=== PATIENT | male | born 1945 | race Caucasian/White ===

== ENCOUNTER 2016-06-13 08:10 | Day surgery (SDC) | payer MEDICARE, BC ==
[~2016-06-13] VITALS: Ht 188 cm; Wt 115.8 kg
[2016-06-13] VITALS (22 sets, daily range): BP systolic 126–199; BP diastolic 70–95; PULSE 56–86; RESP 12–20; TEMP 97.1–98.4; O2SAT 92–99; Ht 188 cm; Wt 115.8 kg
[~2016-06-13 08:10] MED LIST: ACET-2930 PO; ASPI-557 PO; ASPI1CPM PO; ATOR40TA64 PO; CETI10CA19 PO; FENTANYL 100mcg/2ml INJECTION ONE; FLUT9.9S NAS; ICAPS PO; INSU100V SQ; INSU100V8 SQ; LIDOCAINE 1% (10mg/ml) 2ml SDV INJ ONE; LR 1,000 ML IV SCH; MAGN400T6 PO; METO25TA6 PO; MIDAZOLAM 5mg/5ml INJECTION ONE; NITR0.4T39 PO; OLME20TA15 PO; PROP15DR BOTH EYES; SALINE FLUSH 10ml SYRINGE ONE; TAMS0.4C47 PO
--- OUTSIDE RECORDS SUMMARY | 2016-06-13 08:37 | XMS REPORT | Referral Summary ---
Author Author [facility] Organization [facility] Address Unknown Phone Unavailable Care Team Providers Care Business Director Name Role Phone Patricia Conner Primary Care Physician [phone] Encounter VC Date(s): 03/24/15 - 03/24/15 [facility] 1945 [facility] [place] [address] Discharge Disposition: 01-Home or Self Care Attending Physician: Navarro Bolaños MD Admitting Physician: Navarro Bolaños MD Vital Signs No data available for this section Problem List Condition Effective Dates Status Health Status Informant Acute Active pain(Confirmed) Alteration in bowel 09/18/14 Active elimination(Confirme d)1 At risk for activity Active intolerance(Confirme d)2 At risk for Active injury(Confirmed)3 At risk of pressure Active sore(Confirmed) Benign essential Active hypertension (disorder)(Confirmed ) Benign prostatic Active hypertrophy(Confirme d) Cardiac Active disorder(Confirmed)4 CVA (cerebral Active patient infarction)(Confirme d) Communication Active impairment(Confirmed )5 DM (diabetes Active patient mellitus)(Confirmed) Ketoacidosis in Active diabetes mellitus (disorder)(Confirmed ) Hyperlipidemia(Confi Active rmed) HYPERTENSION(Confirm Resolved ed) Impaired 09/18/14 Active mobility(Confirmed)6 Impaired skin Active integrity(Confirmed) 7 Self -care Active deficit(Confirmed)8 Tissue perfusion Active alteration(Confirmed )9 1Problem added by Discern Expert 2Problem added automatically by system based on initiation of At Risk for Activity Intolerance Plan of Care 3Problem added automatically by system based on initiation of Risk for Injury Plan of Care 4Problem added automatically by system based on initiation of Cardiac Output/ Ineffective Cardiac Perfusion Plan of Care 5Problem added automatically by system based on initiation of Impaired Communication Plan of Care 6Problem added by Discern Expert 7Problem added automatically by system based on initiation of Impaired Skin Integrity Plan of Care 8Problem added automatically by system based on initiation of Self Care Deficit Plan of Care 9Problem added automatically by system based on initiation of Tissue Perfusion Cerebral Plan of Care Allergies, Adverse Reactions, Alerts Substance Reaction Severity Status clarithromycin Unknown Active smallpox vaccine Active Medications Aggrenox 1 caps, Oral, BID, 0 Refill(s) Start Date: 03/07/15 Status: Ordered atorvastatin 40 mg, Oral, Bedtime (once a day), 0 Refill(s) Start Date: 03/07/15 Status: Ordered Benicar 20 mg, Oral, Daily, 0 Refill(s) Start Date: 03/07/15 Status: Ordered Flomax 0.4 mg, Oral, Daily, 0 Refill(s) Start Date: 03/07/15 Status: Ordered HumaLOG See Instructions, 18 - 22 units three times a day with meals, depending on meal , 0 Refill(s) Start Date: 03/07/15 Status: Ordered Lantus 30 units, SubCutaneous, Bedtime (once a day), 0 Refill(s) Start Date: 03/07/15 Status: Ordered Lantus 35 units, SubCutaneous, qAM, 0 Refill(s) Start Date: 03/07/15 Status: Ordered metoprolol tartrate 25 mg oral tablet 0.5 mg, Oral, BID, # 30 tabs, 0 Refill(s) Start Date: 03/08/15 Status: Ordered multivitamin Oral, Daily, 0 Refill(s) Start Date: 03/07/15 Status: Ordered niCARdipine 30 mg, Oral, TID, 0 Refill(s) Start Date: 03/07/15 Status: Ordered nitroglycerin 0.4 mg sublingual tablet 0.4 mg 1 tabs, SubLingual, q5min, as needed for chest pain, # 100 tabs, 0 Refill (s) Start Date: 03/08/15 Status: Ordered OTC allergy med OTC allergy med, 1 oral daily, 0 Refill(s) Start Date: 03/07/15 Status: Ordered OTC nasal spray OTC nasal spray, 1 spray nasally daily, 0 Refill(s) Start Date: 03/07/15 Status: Ordered Results No data available for this section Immunizations Vaccine Date Refusal Reason influenza virus vaccine, live 05/03/13 influenza virus vaccine, live 02/23/11 influenza virus vaccine, live 05/24/10 pneumococcal 23-polyvalent vaccine 05/24/10 tetanus-diphth toxoids (Td) adult/adol 11/27/96 Procedures Procedure Date Related Diagnosis Body Site History of cataract extraction Vitrectomy1 1bilateral Social History Social History Type Response Smoking Status Never smoker Assessment and Plan No data available for this section
--- OUTSIDE RECORDS SUMMARY | 2016-06-13 08:37 | XMS REPORT | Continuity of Care Document ---
Author Author [facility] Organization [facility] Address Unknown Phone Unavailable Allergies Active Description Code Type Severity Reaction Onset Reported/Identified Relationship to Patient Clinical Status Yes clarithromycin NKMA N/A Unknown 08/04/2013 Yes smallpox vaccine NKMA N/A N/A 08/04/2013 Yes clarithromycin NKMA N/A Unknown 08/04/2013 Yes smallpox vaccine NKMA N/A N/A 08/04/2013 Yes clarithromycin clarithromycin Drug Allergy Unknown DECREASED APPETITE 10/18/2014 Medications Problems Date Dx Coded Attending Type Code Diagnosis Diagnosed By 09/13/2014 Admitting 780.79 09/20/2014 Enma Spivey Final 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, type II or unspecified ty 09/20/2014 Enma Spivey Final 272.4 OTHER AND UNSPECIFIED HYPERLIPIDEMIA 09/20/2014 Enma Spivey Final 362.01 BACKGROUND DIABETIC RETINOPATHY 09/20/2014 Enma Spivey Final 401.9 UNSPECIFIED ESSENTIAL HYPERTENSION 09/20/2014 Enma Spivey Admitting 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, UNSPECIFIED, WITH CEREBRAL INFARCTION 09/20/2014 Enma Spivey Final 438.11 APHASIA LATE EFFECT OF CEREBROVASCULAR DISEASE 09/20/2014 Enma Spivey Final 438.20 HEMIPLEGIA AFFECTING UNSPECIFIED SIDE LATE EFFECT OF CEREBROVASCULAR DIS 09/20/2014 Enma Spivey Final 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 09/20/2014 Enma Spivey Final 473.9 UNSPECIFIED SINUSITIS (CHRONIC) 09/20/2014 Enma Spivey Final 486 PNEUMONIA, ORGANISM UNSPECIFIED 09/20/2014 Enma Spivey Final 787.20 Dysphagia, unspecified 09/20/2014 Enma Spivey Final V12.59 OTHER PERSONAL HISTORY OF DISEASES OF CIRCULATORY SYSTEM 09/20/2014 Enma Spivey Final V15.82 Personal History of Tobacco Use 09/23/2014 Admitting 780.97 Altered mental status 10/12/2014 Enma Spivey Final 368.8 OTHER SPECIFIED VISUAL DISTURBANCES 10/14/2014 Enma Spivey Final V57.89 CARE INVOLVING OTHER SPECIFIED REHABILITATION PROCEDURE 11/10/2014 Final 250.52 Diabetes mellitus with ophthalmic manifestations, type II or unspecified ty 11/10/2014 Final 272.4 OTHER AND UNSPECIFIED HYPERLIPIDEMIA 11/10/2014 Final 290.40 Vascular dementia, uncomplicated 11/10/2014 Final 362.01 BACKGROUND DIABETIC RETINOPATHY 11/10/2014 Final 401.1 BENIGN ESSENTIAL HYPERTENSION 11/10/2014 Final 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, UNSPECIFIED, WITH CEREBRAL INFARCTION 11/10/2014 Final 437.0 CEREBRAL ATHEROSCLEROSIS 11/10/2014 Final 473.9 UNSPECIFIED SINUSITIS (CHRONIC) 11/10/2014 Final 600.00 Hypertrophy (benign) of prostate without urinary obstruction and other lowe 11/10/2014 Final 784.51 Dysarthria 11/10/2014 Final V15.82 Personal History of Tobacco Use 03/16/2015 Dalton MARTINEZ, Thomas Final E11.9 Type 2 diabetes mellitus without complications 03/16/2015 Dalton MARTINEZ, Thomas Final E78.5 Hyperlipidemia, unspecified 03/16/2015 Dalton MARTINEZ, Thomas Final I10 Essential (primary) hypertension 03/16/2015 Dalton MARTINEZ, Thomas Final 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75 VITREOUS SUBSTITUT INJEC Chaitanya MARTINEZ, Braeden P 12/08/2014 14.9 OTHER POST SEGMENT OPS Chaitanya MARTINEZ, Braeden P 12/08/2014 Results Test Result Range GLUCOSE (POC) - 10/18/14 13:01 GLUCOSE (POC) 171 mg/dL 70-99 HEMOGLOBIN - 10/18/14 13:02 MEAN CELL VOLUME 94.3 fl 80.0-100.0 HEMOGLOBIN 14.7 gm/dL 14.0-18.0 METABOLIC PANEL, BASIC - 10/18/14 13:03 POTASSIUM 4.2 mmol/L 3.5-5.3 EST GFR (MDRD) > 60 mL/min > 59 ANION GAP 10 mmol/L 5-15 EST CrCl (CG) > 60 mL/min > 59 GLUCOSE 199 mg/dL 70-99 CALCIUM 9.0 mg/dL 8.5-10.1 BLOOD UREA NITROGEN 20 mg/dL 7-20 CREATININE 1.0 mg/dL 0.7-1.3 SODIUM 141 mmol/L 135-148 CHLORIDE 108 mmol/L 98-110 CARBON DIOXIDE 23 mmol/L 21-32 HEMOGLOBIN - 12/08/14 13:36 MEAN CELL VOLUME 94.2 fl 80.0-100.0 HEMOGLOBIN 15.8 gm/dL 14.0-18.0 Microbiology GLUCOSE (POC) - 12/08/14 13:39 GLUCOSE (POC) 69 mg/dL 70-99 Microbiology GLUCOSE (POC) - 12/08/14 14:17 GLUCOSE (POC) 91 mg/dL 70-99 Microbiology GLUCOSE (POC) - 12/08/14 15:08 GLUCOSE (POC) 85 mg/dL 70-99 Microbiology Encounters ACCT No. Visit Date/Time Discharge Status Pt. Type Provider Facility Loc./Unit Complaint [id number] 12/08/2014 12:56:00 2014 17:02:00 DIS Outpatient Chaitanya MARTINEZ, Braeden [facility] W.OPRA [id number] 10/18/2014 12:16:00 2014 16:13:00 DIS Outpatient Chaitanya MARTINEZ, Braeden [facility] W.OPRA [id number] 08/04/2014 14:41:00 2014 17:38:00 DIS Emergency Erin MARTINEZ, [facility] W.EDW [id number] 11/28/2013 11:05:00 2013 12:45:00 [id number] 02/07/2013 17:41:00 2012 18:55:00 DIS Emergency Gaston DO, [facility] THAI
--- OUTSIDE RECORDS SUMMARY | 2016-06-13 08:37 | XMS REPORT | Referral Summary ---
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 Discharge Disposition: 01-Home or Self Care Attending [...] (disorder)(Confirmed ) Benign prostatic Active hypertrophy(Confirme d) Communication Active impairment(Confirmed )4 Ketoacidosis in Active diabetes mellitus (disorder)(Confirmed ) Hyperlipidemia(Confi Active rmed) HYPERTENSION(Confirm Resolved ed) Impaired 09/18/14 Active mobility(Confirmed)5 Impaired skin Active integrity(Confirmed) 6 Self -care Active deficit(Confirmed)7 Tissue perfusion Active alteration(Confirmed )8 1Problem added by Discern Expert 2Problem added automatically by system based on initiation of At Risk for Activity Intolerance Plan of Care 3Problem added automatically by system based on initiation of Risk for Injury Plan of Care 4Problem added automatically by system based on initiation of Impaired Communication Plan of Care 5Problem added by Discern Expert 6Problem added automatically by system based on initiation of Impaired Skin Integrity Plan of Care 7Problem added automatically by system based on initiation of Self Care Deficit Plan of Care 8Problem added automatically by system based on initiation of Tissue Perfusion Cerebral Plan of Care Allergies, Adverse Reactions, Alerts Substance Reaction Severity Status clarithromycin Unknown Active smallpox vaccine Active Medications acetaminophen 325 mg oral tablet 650 mg 2 tabs, Oral, q4hr, Other (See Comment), 0 Refill(s) Start Date: 09/17/14 Status: Ordered Aggrenox 25 mg-200 mg oral capsule, extended release 1 caps, Oral, BID, # 180 caps, 3 Refill(s), Pharmacy: [facility] #[id number] Start Date: 10/18/14 Status: Ordered amoxicillin 875 mg oral tablet 875 mg 1 tabs, Oral, BID, for sinusitis, # 28 tabs, 0 Refill(s), Pharmacy: [facility] #[id number], 1 tabs Oral BID,x14 days,Instr:for sinusitis Start Date: 02/07/15 Stop Date: 02/21/15 Status: Ordered atorvastatin 40 mg oral tablet 40 mg 1 tabs, Oral, Bedtime (once a day), # 90 tabs, 3 Refill(s), Pharmacy: [facility] #[id number], 1 tabs Oral Bedtime (once a day) Start Date: 10/18/14 Status: Ordered Breeze 2 test stips Breeze 2 test stips, See Instructions, test 4 times 1 day 3 TIMES PER WEEK DX 250.00 Length of need 99 yrs QTY: 150 11 REFILLS, # 150 Each, 11 Refill(s), Pharmacy: [facility] #[id number], test 4 times 1 day 3 TIMES PER WEEK ; DX 250.00 Length of... Start Date: 11/11/14 Status: Ordered Colace 100 mg oral capsule 100 mg 1 caps, Oral, BID, 0 Refill(s) Start Date: 09/17/14 Status: Ordered Flomax mg, Oral, Daily, 0 Refill(s) Start Date: 02/07/15 Status: Ordered insulin lispro 100 units/mL subcutaneous solution 15 units, SubCutaneous, TIDWM, # 15 mL, 11 Refill(s), Pharmacy: [facility] #[id number], 15 units SubCutaneous TIDWM Start Date: 10/18/14 Status: Ordered Lantus 100 units/mL subcutaneous solution 40 units, SubCutaneous, qAM, # 10 mL, 11 Refill(s), Pharmacy: [facility] # [id number], 40 units SubCutaneous qAM Start Date: 10/18/14 Status: Ordered Lantus 100 units/mL subcutaneous solution 35 units, SubCutaneous, Bedtime (once a day), # 10 mL, 11 Refill(s), Pharmacy: [facility] #[id number], 35 units SubCutaneous Bedtime (once a day) Start Date: 10/18/14 Status: Ordered Misc Prescription Misc Prescription, See Instructions, IntraDermal QID, # 1 boxes, 11 Refill(s), Pharmacy: [facility] #[id number], IntraDermal QID Start Date: 10/18/14 Status: Ordered Miscellaneous DME DME Item ACCU CHECK SAFETY PRO PLUS SINGLE USE LANCETS, See Instructions, # 1 Each, 1 Refill(s), Pharmacy: [facility] #[id number], ACCU CHECK SAFETY PRO PLUS SINGLE USE LANCETS, Supply Start Date: 10/29/14 Status: Ordered Miscellaneous DME DME Item ACCU-CHEK SMARTVIEW TEST STRIP. CHECK BLOOD SUGARS TEST 5 X A DAY UNTILL BS ARE UNDER CONTROL DX 250.00 DEBBI 99 ONE BOX OF 150 REFILL X 11, See Instructions, # 150 Each, 11 Refill(s), Pharmacy: [facility] #[id number], ACCU-CHEK SMARTV... Start Date: 11/11/14 Status: Ordered niCARdipine 30 mg oral capsule 30 mg 1 caps, Oral, TID, # 270 caps, 3 Refill(s), Pharmacy: [facility] # [id number], 1 caps Oral TID Start Date: 10/18/14 Status: Ordered olmesartan 20 mg oral tablet 20 mg 1 tabs, Oral, Daily, # 90 tabs, 3 Refill(s), Pharmacy: [facility] # [id number], 1 tabs Oral Daily Start Date: 10/18/14 Status: Ordered topiramate 25 mg oral tablet 50 mg 2 tabs, Oral, BID, # 360 tabs, 3 Refill(s), Pharmacy: [facility] # [id number], 2 tabs Oral BID Start Date: 10/18/14 Status: Ordered Tums 500 mg oral tablet, chewable 500 mg 1 tabs, Oral, q4hr, GERD/Heartburn, 0 Refill(s) Start Date: 09/17/14 Status: Ordered Results No data available for this section Immunizations Vaccine Date Refusal Reason influenza virus vaccine, live 05/03/13 influenza virus vaccine, live 02/23/11 influenza virus vaccine, live 05/24/10 pneumococcal 23-polyvalent vaccine 05/24/10 tetanus-diphth toxoids (Td) adult/adol 11/27/96 Procedures Procedure Date Related Diagnosis Body Site Vitrectomy1 1bilateral Social History Social History Type Response Smoking Status Never smoker Assessment and Plan Extracted from: Title: Consult Note Author: Navarro Bolaños MD Date: 02/07/15 Assessment/Plan 1.Polyp of vocal cord Ordered: Office Visit Level 3 New 29424 2.Chronic pansinusitis Ordered: Office Visit Level 3 New 70034 3.Snoring Ordered: Office Visit Level 3 New 61399 4.Allergic rhinitis, seasonal Ordered: Office Visit Level 3 New 84439 5.Hx of completed stroke 6.Deviated nasal septum Orders: amoxicillin, 875 mg 1 tabs, Oral, BID, for sinusitis, # 28 tabs, 0 Refill(s), Pharmacy: [facility] #[id number], 1 tabs Oral BID,x14 days,Instr: for sinusitis
--- OUTSIDE RECORDS SUMMARY | 2016-06-13 08:38 | XMS REPORT | Referral Summary ---
Author Author [facility] Organization [facility] Address Unknown Phone Unavailable Care Team Providers Care Diabetes Physician Name Role Phone Patricia Conner Primary Care Physician [phone] Encounter VC Date(s): 10/18/14 - 10/18/14 [facility] [address] [address] Discharge Diagnosis: Elevated PSA Discharge Diagnosis: Hyperlipemia, mixed Discharge Diagnosis: Benign hypertension Discharge Diagnosis: CVA (cerebrovascular accident) Discharge Diagnosis: DM2 (diabetes mellitus, type 2) Discharge Disposition: 01-Home or Self Care Attending Physician: Andrwes August DO Admitting Physician: Andrews August DO Vital Signs Most recent to 1 oldest [Reference Range]: Peripheral Pulse 84 bpm Rate [60-100 bpm] (10/18/14 10:36 AM) Blood Pressure 136/68 mmHg [90-140/60-90 mmHg] (10/18/14 10:36 AM) SpO2 96 % (10/18/14 10:36 AM) Problem List Condition Effective Dates Status Health [...] BID, # 180 caps, 3 Refill(s), Pharmacy: [facility] #[id number] Start Date: 10/18/14 Status: Ordered amoxicillin 875 mg oral tablet 875 mg 1 tabs, Oral, BID, for sinusitis, # 28 tabs, 0 Refill(s), Pharmacy: [facility] #[id number], 1 tabs Oral BID,x14 days,Instr:for sinusitis Start Date: 02/07/15 Stop Date: 02/21/15 Status: Ordered atorvastatin 40 mg oral tablet 40 mg 1 tabs, Oral, Bedtime (once a day), # 90 tabs, 3 Refill(s), Pharmacy: [facility] #[id number], 1 tabs Oral Bedtime (once a day) Start Date: 10/18/14 Status: Ordered Breeze 2 test stips Breeze 2 test stips, See Instructions, test 4 times 1 day 3 TIMES PER WEEK DX 250.00 Length of need 99 yrs QTY: 150 11 REFILLS, # 150 Each, 11 Refill(s), Pharmacy: [facility] #[id number], test 4 times 1 day 3 TIMES [...] TIDWM, # 15 mL, 11 Refill(s), Pharmacy: [facility] #[id number], 15 units SubCutaneous TIDWM Start Date: 10/18/14 Status: Ordered Lantus 100 units/mL subcutaneous solution 40 units, SubCutaneous, qAM, # 10 mL, 11 Refill(s), Pharmacy: [facility] # [id number], 40 units SubCutaneous qAM Start Date: 10/18/14 Status: Ordered Lantus 100 units/mL subcutaneous solution 35 units, SubCutaneous, Bedtime (once a day), # 10 mL, 11 Refill(s), Pharmacy: [facility] #[id number], 35 units SubCutaneous Bedtime (once a day) Start Date: 10/18/14 Status: Ordered Misc Prescription Misc Prescription, See Instructions, IntraDermal QID, # 1 boxes, 11 Refill(s), Pharmacy: [facility] #[id number], IntraDermal QID Start Date: 10/18/14 Status: Ordered Miscellaneous DME DME Item ACCU CHECK SAFETY PRO PLUS SINGLE USE LANCETS, See Instructions, # 1 Each, 1 Refill(s), Pharmacy: [facility] #[id number], ACCU CHECK SAFETY PRO PLUS SINGLE USE LANCETS, Supply Start Date: 10/29/14 Status: Ordered Miscellaneous DME DME Item ACCU-CHEK SMARTVIEW TEST STRIP. CHECK BLOOD SUGARS TEST 5 X A DAY UNTILL BS ARE UNDER CONTROL DX 250.00 DEBBI 99 ONE BOX OF 150 REFILL X 11, See Instructions, # 150 Each, 11 Refill(s), Pharmacy: [facility] #[id number], ACCU-CHEK SMARTV... Start Date: 11/11/14 Status: Ordered niCARdipine 30 mg oral capsule 30 mg 1 caps, Oral, TID, # 270 caps, 3 Refill(s), Pharmacy: [facility] # [id number], 1 caps Oral TID Start Date: 10/18/14 Status: Ordered olmesartan 20 mg oral tablet 20 mg 1 tabs, Oral, Daily, # 90 tabs, 3 Refill(s), Pharmacy: [facility] # [id number], 1 tabs Oral Daily Start Date: 10/18/14 Status: Ordered topiramate 25 mg oral tablet 50 mg 2 tabs, Oral, BID, # 360 tabs, 3 Refill(s), Pharmacy: [facility] # [id number], 2 tabs Oral BID Start Date: 10/18/14 [...] smoker Assessment and Plan Extracted from: Title: Ambulatory Patient Education Author: Andrews August DO Date: Follow Up With: Where: When: Andrews August [id number] [place] [phone] [facility] (1) In 2 months 12/19/2014 Comments: Call for followup appointment Appointment Scheduled with neurology pt is to cut lantus down 10 units both am and PM pt to let us know how sugars are doing keep working on diet continue home strengthening exercises Extracted from: Title: CVA Author: Andrews August DO Date: 10/18/14 Impression and Plan Diagnosis DM2 (diabetes mellitus, type 2) (ICD9 250.00, Discharge, Medical). CVA (cerebrovascular accident) (ICD9 434.91, Discharge, Medical). Benign hypertension (ICD9 401.1, Discharge, Nursing). Course: Improving. Plan: Refer to: Neurologist, just finished rehab. Patient Instructions: Andrews August In 2 months 12/19/2014 Call for followup appointment Appointment Scheduled with neurology pt is to cut lantus down 10 units both am and PM pt to let us know how sugars are doing keep working on diet continue home strengthening exercises. Orders Orders (Selected) Prescriptions Prescribed Lantus 100 units/mL subcutaneous solution: 35 units, SubCutaneous, Bedtime ( once a day), 10 mL, 11 Refill(s) Lantus 100 units/mL subcutaneous solution: 40 units, SubCutaneous, qAM, 10 mL, 11 Refill(s) Miscellaneous DME: See Instructions, ACCU-CHEK SMARTVIEW TEST STRIP. CHECK BLOOD SUGARS TEST 4 X A DAY UNTILL BS ARE UNDER CONTROL DX 250.0 DEBBI 99 ONE BOX OF 100, 1 Each, 11 Refill(s) atorvastatin 40 mg oral tablet: 40 mg=1 tabs, Oral, Bedtime (once a day), 90 tabs, 3 Refill(s) insulin lispro 100 units/mL subcutaneous solution: 15 units, SubCutaneous, TIDWM , 15 mL, 11 Refill(s) niCARdipine 30 mg oral capsule: 30 mg=1 caps, Oral, TID, 270 caps, 3 Refill(s) olmesartan 20 mg oral tablet: 20 mg=1 tabs, Oral, Daily, 90 tabs, 3 Refill(s) topiramate 25 mg oral tablet: 50 mg=2 tabs, Oral, BID, 360 tabs, 3 Refill(s).
--- OUTSIDE RECORDS SUMMARY | 2016-06-13 08:38 | XMS REPORT | Referral Summary ---
Author Author [facility] Organization [facility] Address Unknown Phone Unavailable Care Team Providers Care Boilermaker Loftsman Name Role Phone Patricia Conner Primary Care Physician [phone] Encounter VC Date(s): 10/18/14 - 10/18/14 [facility] [address] [address] Discharge Diagnosis: Elevated PSA Discharge Diagnosis: Hyperlipemia, mixed Discharge Diagnosis: Benign hypertension Discharge Diagnosis: CVA (cerebrovascular accident) Discharge Diagnosis: DM2 (diabetes mellitus, type 2) Discharge Disposition: 01-Home or Self Care Attending Physician: Andrews August DO Admitting Physician: Andrews August DO [...] BID, # 180 caps, 3 Refill(s), Pharmacy: [facility] #[id number] Start Date: 10/18/14 Status: Ordered amoxicillin 875 mg oral tablet 875 mg 1 tabs, Oral, BID, for sinusitis, # 28 tabs, 0 Refill(s), Pharmacy: [facility] #[id number], 1 tabs Oral BID,x14 days,Instr:for sinusitis Start Date: 02/07/15 Stop Date: 02/21/15 Status: Ordered atorvastatin 40 mg oral tablet 40 mg 1 tabs, Oral, Bedtime (once a day), # 90 tabs, 3 Refill(s), Pharmacy: [facility] #[id number], 1 tabs Oral Bedtime (once a day) Start Date: 10/18/14 Status: Ordered Breeze 2 test stips Breeze 2 test stips, See Instructions, test 4 times 1 day 3 TIMES PER WEEK DX 250.00 Length of need 99 yrs QTY: 150 11 REFILLS, # 150 Each, 11 Refill(s), Pharmacy: [facility] #[id number], test 4 times 1 day 3 TIMES [...] TIDWM, # 15 mL, 11 Refill(s), Pharmacy: [facility] #[id number], 15 units SubCutaneous TIDWM Start Date: 10/18/14 Status: Ordered Lantus 100 units/mL subcutaneous solution 40 units, SubCutaneous, qAM, # 10 mL, 11 Refill(s), Pharmacy: [facility] # [id number], 40 units SubCutaneous qAM Start Date: 10/18/14 Status: Ordered Lantus 100 units/mL subcutaneous solution 35 units, SubCutaneous, Bedtime (once a day), # 10 mL, 11 Refill(s), Pharmacy: [facility] #[id number], 35 units SubCutaneous Bedtime (once a day) Start Date: 10/18/14 Status: Ordered Misc Prescription Misc Prescription, See Instructions, IntraDermal QID, # 1 boxes, 11 Refill(s), Pharmacy: [facility] #[id number], IntraDermal QID Start Date: 10/18/14 Status: Ordered Miscellaneous DME DME Item ACCU CHECK SAFETY PRO PLUS SINGLE USE LANCETS, See Instructions, # 1 Each, 1 Refill(s), Pharmacy: [facility] #[id number], ACCU CHECK SAFETY PRO PLUS SINGLE USE LANCETS, Supply Start Date: 10/29/14 Status: Ordered Miscellaneous DME DME Item ACCU-CHEK SMARTVIEW TEST STRIP. CHECK BLOOD SUGARS TEST 5 X A DAY UNTILL BS ARE UNDER CONTROL DX 250.00 DEBBI 99 ONE BOX OF 150 REFILL X 11, See Instructions, # 150 Each, 11 Refill(s), Pharmacy: [facility] #[id number], ACCU-CHEK SMARTV... Start Date: 11/11/14 Status: Ordered niCARdipine 30 mg oral capsule 30 mg 1 caps, Oral, TID, # 270 caps, 3 Refill(s), Pharmacy: [facility] # [id number], 1 caps Oral TID Start Date: 10/18/14 Status: Ordered olmesartan 20 mg oral tablet 20 mg 1 tabs, Oral, Daily, # 90 tabs, 3 Refill(s), Pharmacy: [facility] # [id number], 1 tabs Oral Daily Start Date: 10/18/14 Status: Ordered topiramate 25 mg oral tablet 50 mg 2 tabs, Oral, BID, # 360 tabs, 3 Refill(s), Pharmacy: [facility] # [id number], 2 tabs Oral BID Start Date: 10/18/14 [...] Follow Up With: Where: When: Andrews August [address]; [address] [place] [id number] [facility] (1) In 2 months 12/19/2014 [...]
--- OUTSIDE RECORDS SUMMARY | 2016-06-13 08:38 | XMS REPORT ---
Author Author Ronnell Restrepo Organization [employer] Address Unknown Phone Unavailable Care Team Providers Care Account Management Specialist Name Role Phone Ronnell Restrepo CP Unavailable Allergies No Known Allergies Problems No Known Problems Medications No Known Medications Results No Known Results Summary Purpose [employer] Submission
--- OUTSIDE RECORDS SUMMARY | 2016-06-13 08:38 | XMS REPORT | Referral Summary ---
Author Author [facility] Organization [facility] Address Unknown Phone Unavailable Care Team Providers Care Shoe Dyer Name Role Phone Patricia Conner Primary Care Physician [phone] Encounter VC Date(s): 09/13/14 - 09/17/14 [facility] [address] [place] [address] Discharge Diagnosis: PAIN IN JOINT INVOLVING LOWER LEG Final: Dysarthria Final: OTHER AND UNSPECIFIED HYPERLIPIDEMIA Final: BENIGN ESSENTIAL HYPERTENSION Final: UNSPECIFIED SINUSITIS (CHRONIC) Final: Vascular dementia, uncomplicated Final: CEREBRAL ATHEROSCLEROSIS Final: Diabetes mellitus with ophthalmic manifestations, type II or unspecified type, uncontrolled Final: BACKGROUND DIABETIC RETINOPATHY Final: Hypertrophy (benign) of prostate without urinary obstruction and other lower urinary tract (LUTS) Final: Personal History of Tobacco Use Final: CEREBRAL ARTERY OCCLUSION, UNSPECIFIED, WITH CEREBRAL INFARCTION Discharge Disposition: 62-Inpatient Rehab Facility Attending Physician: Abdi Porter MD Admitting Physician: Anne Venegas MD Vital Signs Most recent to 1 oldest [Reference Range]: Temperature Axillary 36.4 degC [35.2-36.7 degC] (09/14/14 9:18 AM) Temperature Oral 36.8 degC [35.8-37.3 degC] (09/17/14 12:00 PM) Temperature Temporal 36.8 degC Artery [36.3-37.8 (09/17/14 8:00 AM) degC] Peripheral Pulse 85 bpm Rate [60-100 bpm] (09/17/14 12:00 PM) Heart Rate Monitored 88 bpm [60-100 bpm] (09/13/14 8:48 PM) Respiratory Rate 20 br/min [14-20 br/min] (09/17/14 12:00 PM) Blood Pressure 135/77 mmHg [90-140/60-90 mmHg] (09/17/14 12:00 PM) Mean Arterial 116 mmHg Pressure, Cuff (09/13/14 7:20 PM) SpO2 96 % (09/17/14 12:00 PM) Problem List Condition Effective Dates Status Health [...] Refill(s) Start Date: 03/07/15 Status: Ordered Results Hematology Most recent to 1 oldest [Reference Range]: WBC [4.8-10.8 9.2 10*3/uL 10*3/uL] (09/16/14 6:50 AM) RBC [4.60-6.20 4.93 10*6/uL 10*6/uL] (09/16/14 6:50 AM) Hgb [14.0-18.0 15.3 gm/dL gm/dL] (09/16/14 6:50 AM) Hct [42.0-52.0 %] 44.2 % (09/16/14 6:50 AM) MCV [82.0-99.0 fL] 89.7 fL (09/16/14 6:50 AM) MCH [27.0-32.0 pg] 31.0 pg (09/16/14 6:50 AM) MCHC [32.0-36.0 34.6 gm/dL gm/dL] (09/16/14 6:50 AM) RDW [11.5-14.5 %] 12.8 % (09/16/14 6:50 AM) Platelet [150-400 267 10*3/uL 10*3/uL] (09/16/14 6:50 AM) MPV [9.4-12.3 fL] 11.4 fL (09/16/14 6:50 AM) Immature 0.2 % Granulocytes (09/14/14 4:57 AM) [0.0-1.0 %] Neutrophils [51-75 58 % %] (09/14/14 4:57 AM) Lymphocytes [20-46 29 % %] (09/14/14 4:57 AM) Monocytes [4-11 %] 9 % (09/14/14 4:57 AM) Eosinophils [0-4 %] 3 % (09/14/14 4:57 AM) Basophils [0-2 %] 1 % (09/14/14 4:57 AM) Neutro Absolute 3.79 10*3 [1.90-7.00 10*3] (09/14/14 4:57 AM) Lymph Absolute 1.90 10*3 [0.80-3.30 10*3] (09/14/14 4:57 AM) [place] Absolute 0.60 10*3 [0.30-1.00 10*3] (09/14/14 4:57 AM) Eos Absolute 0.21 10*3 [0.00-0.50 10*3] (09/14/14 4:57 AM) Baso Absolute 0.04 10*3 [0.00-0.20 10*3] (09/14/14 4:57 AM) Nucleated RBC 0.0 /100 WBC Automated [0 /100 (09/14/14 4:57 AM) WBC] Sed Rate [0-15 18 mm/hr mm/hr] *HI* (09/13/14 5:38 PM) Chemistry Most recent to 1 oldest [Reference Range]: Sodium Lvl [136-144 141 mEq/L mEq/L] (09/16/14 6:50 AM) Potassium Lvl 3.6 mEq/L [3.6-5.1 mEq/L] (09/16/14 6:50 AM) Chloride [99-109 108 mEq/L mEq/L] (09/16/14 6:50 AM) CO2 [22-32 mEq/L] 24 mEq/L (09/16/14 6:50 AM) AGAP [3-20] 9 (09/16/14 6:50 AM) BUN [4-20 mg/dL] 14 mg/dL (09/16/14 6:50 AM) Glucose Lvl [70-100 96 mg/dL mg/dL] (09/16/14 6:50 AM) Creatinine Lvl 0.93 mg/dL [0.64-1.27 mg/dL] (09/16/14 6:50 AM) eGFR [>60] >60 1 (09/16/14 6:50 AM) Calcium Lvl 9.0 mg/dL [8.6-10.0 mg/dL] (09/16/14 6:50 AM) Albumin Lvl [3.5-4.8 3.8 gm/dL gm/dL] (09/13/14 5:38 PM) Total Protein 7.1 gm/dL [6.1-7.9 gm/dL] (09/13/14 5:38 PM) Globulin [1.9-4.3 3.3 gm/dL gm/dL] (09/13/14 5:38 PM) ALT [17-63 U/L] 23 U/L (09/13/14 5:38 PM) AST [15-41 U/L] 23 U/L (09/13/14 5:38 PM) Alk Phos [26-104 52 U/L U/L] (09/13/14 5:38 PM) Bili Total [0.2-1.2 1.1 mg/dL 2 mg/dL] (09/13/14 5:38 PM) Magnesium Lvl 1.8 mg/dL [1.8-2.5 mg/dL] (09/14/14 4:57 AM) Troponin [<0.06 <0.05 ng/mL ng/mL] (09/13/14 5:38 PM) Ammonia [9-35 25 mcmol/L mcmol/L] (09/14/14 4:57 AM) Vitamin B12 Lvl 444 pg/mL [213-816 pg/mL] (09/14/14 4:57 AM) Blood Glucose, 110 mg/dL Capillary [74-106 *HI* mg/dL] (09/17/14 1:43 PM) Chol [0-200 mg/dL] 150 mg/dL (09/14/14 4:57 AM) Trig [0-150 mg/dL] 262 mg/dL *HI* (09/14/14 4:57 AM) HDL [>40 mg/dL] 45 mg/dL (09/14/14 4:57 AM) LDL [0-100 mg/dL] 53 mg/dL (09/14/14 4:57 AM) VLDL Cholesterol 52 mg/dL [0-30 mg/dL] *HI* (09/14/14 4:57 AM) Cardiac Risk 3.3 [0.0-5.7] (09/14/14 4:57 AM) TSH with Reflex Free 1.25 T4 [0.35-5.50] (09/13/14 5:38 PM) Hgb A1c [4.1-5.6 %] 10.3 % *HI* (09/13/14 5:38 PM) eAvg Glucose 248.9 mg/dL (09/13/14 5:38 PM) 1Result Comment: Multiply eGFR results by 1.21 for race. 2Result Comment: Naproxen, specifically the metabolite O-desmethylnaproxen, may cause spurious elevation in Total Bilirubin levels. Urinalysis Most recent to 1 oldest [Reference Range]: UA Color Lt Yellow (09/13/14 10:21 PM) UA Appear Clear (09/13/14 10:21 PM) UA pH [5.0-8.0] 5.0 (09/13/14 10:21 PM) UA Leuk Est Negative [Negative] (09/13/14 10:21 PM) UA Nitrite Negative [Negative] (09/13/14 10:21 PM) UA Protein Pos 1+ [Negative] *ABN* (09/13/14 10:21 PM) UA Glucose Pos 3+ [Negative] *ABN* (09/13/14 10:21 PM) UA Ketones Pos 2+ [Negative] *ABN* (09/13/14 10:21 PM) UA Urobilinogen Negative [<1.0] (09/13/14 10:21 PM) UA Bili [Negative] Negative (09/13/14 10:21 PM) UA Blood [Negative] Negative (09/13/14 10:21 PM) UA Spec Grav 1.027 [1.003-1.030] (09/13/14 10:21 PM) Type Clean Catch (09/13/14 10:21 PM) UA WBC [0-4] 0-2 (09/13/14 10:21 PM) UA RBC [0-2] None seen (09/13/14 10:21 PM) Microbiology Reports TEST: Respiratory Virus Panel - PCR STATUS: Auth (Verified) BODY SITE: SOURCE: Nasopharyngeal Swab COLLECTED DATE/TIME: 09/13/14 10:07 PM Respiratory Virus Panel - PCR Negative for all strains tested. . Specimen tested for the following FDA approved viral targets: Influenza A, Influenza A subtype H1, Influenza A subtype H3, Influenza A 2009 H1N1, Influenza B, Respiratory Syncytial Virus subtype A, Respiratory Syncytial Virus subtype B, Adenovirus B/E, Adenovirus C, Rhinovirus, Parainfluenza virus 1, Parainfluenza virus 2, Parainfluenza virus 3, and Human Metapneumovirus. . The following viral targets were also tested. Although not FDA approved, these targets have been validated by our laboratory for clinical diagnosis: Parainfluenza virus 4, Coronavirus 229E, Coronavirus NL63, Coronavirus HKU1, and Coronavirus OC43. Immunizations Vaccine Date Refusal Reason influenza virus [...]
--- OUTSIDE RECORDS SUMMARY | 2016-06-13 08:38 | XMS REPORT | Referral Summary ---
Author Author [facility] Organization [facility] Address Unknown Phone Unavailable Care Team Providers Care Housing Counselor Name Role Phone Patricia Conner Primary Care Physician [phone] Encounter VC Date(s): 10/18/14 - 10/18/14 [facility] [address] [address] Discharge Diagnosis: Elevated PSA Discharge Diagnosis: Hyperlipemia, [...] Follow Up With: Where: When: Andrews August [address]; [place] [address] [facility] (1) In 2 months 12/19/2014 Comments: Call [...]
--- OUTSIDE RECORDS SUMMARY | 2016-06-13 08:38 | XMS REPORT | Referral Summary ---
Author Author [facility] Organization [facility] Address Unknown Phone Unavailable Care Team Providers Care Recruitment Director Name Role Phone Patricia Conner Primary Care Physician [phone] Encounter VC Date(s): 09/17/14 - 10/07/14 [facility] [address] [place] [address] Final: CARE INVOLVING OTHER SPECIFIED REHABILITATION PROCEDURE Final: HEMIPLEGIA AFFECTING UNSPECIFIED SIDE LATE EFFECT OF CEREBROVASCULAR DISEASE Final: APHASIA LATE EFFECT OF CEREBROVASCULAR DISEASE Final: PNEUMONIA, ORGANISM UNSPECIFIED Final: Diabetes mellitus with ophthalmic manifestations, type II or unspecified type, not stated as uncontrolled Final: BACKGROUND DIABETIC RETINOPATHY Final: OTHER PERSONAL HISTORY OF DISEASES OF CIRCULATORY SYSTEM Final: OTHER AND UNSPECIFIED HYPERLIPIDEMIA Final: Personal History of Tobacco Use Final: UNSPECIFIED ESSENTIAL HYPERTENSION Final: Dysphagia, unspecified Final: UNSPECIFIED SINUSITIS (CHRONIC) Final: 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 Final: OTHER SPECIFIED VISUAL DISTURBANCES Discharge Disposition: 01-Home or Self Care Attending Physician: Enma Spivey DO Admitting Physician: Andres Vázquez MD Referring Physician: Anne Venegas MD Vital Signs Most recent to 1 oldest [Reference Range]: Temperature Oral 36.9 degC [35.8-37.3 degC] (10/07/14 5:56 AM) Temperature Temporal 36.3 degC Artery [36.3-37.8 (09/30/14 5:29 AM) degC] Peripheral Pulse 65 bpm Rate [60-100 bpm] (10/07/14 3:21 PM) Heart Rate Monitored 62 bpm [60-100 bpm] (10/07/14 5:56 AM) Respiratory Rate 18 br/min [14-20 br/min] (10/07/14 3:21 PM) Blood Pressure 106/64 mmHg [90-140/60-90 mmHg] (10/07/14 3:21 PM) SpO2 94 % (10/07/14 5:56 AM) Problem List Condition Effective Dates Status [...] to 1 oldest [Reference Range]: WBC [4.8-10.8 6.3 10*3/uL 10*3/uL] (10/04/14 6:21 AM) RBC [4.60-6.20 4.32 10*6/uL 10*6/uL] *LOW* (10/04/14 6:21 AM) Hgb [14.0-18.0 13.6 gm/dL gm/dL] *LOW* (10/04/14 6:21 AM) Hct [42.0-52.0 %] 39.8 % *LOW* (10/04/14 6:21 AM) MCV [82.0-99.0 fL] 92.1 fL (10/04/14 6:21 AM) MCH [27.0-32.0 pg] 31.5 pg (10/04/14 6:21 AM) MCHC [32.0-36.0 34.2 gm/dL gm/dL] (10/04/14 6: AM) RDW [11.5-14.5 %] 13.3 % (10/04/14 6:21 AM) Platelet [150-400 261 10*3/uL 10*3/uL] (10/04/14 6:21 AM) MPV [9.4-12.3 fL] 10.2 fL (10/04/14 6:21 AM) Immature 0.2 % Granulocytes (10/04/14: AM) [0.0-1.0 %] Neutrophils [51-75 58 % %] (10/04/14 6: AM) Lymphocytes [20-46 27 % %] (10/04/14 6: AM) Monocytes [4-11 %] 12 % *HI* (10/04/14 6: AM) Eosinophils [0-4 %] 2 % (10/04/14: AM) Basophils [0-2 %] 1 % (10/04/14 6:21 AM) Neutro Absolute 3.61 10*3 [1.90-7.00 10*3] (10/04/14 6:21 AM) Lymph Absolute 1.71 10*3 [0.80-3.30 10*3] (10/04/14 6:21 AM) [place] Absolute 0.73 10*3 [0.30-1.00 10*3] (10/04/14 6:21 AM) Eos Absolute 0.14 10*3 [0.00-0.50 10*3] (10/04/14 6:21 AM) Baso Absolute 0.05 10*3 [0.00-0.20 10*3] (10/04/14 6:21 AM) Chemistry Most recent to 1 oldest [Reference Range]: Sodium Lvl [136-144 140 mEq/L mEq/L] (10/04/14 6:21 AM) Potassium Lvl 3.7 mEq/L [3.6-5.1 mEq/L] (10/04/14 6:21 AM) Chloride [99-109 114 mEq/L mEq/L] *HI* (10/04/14 6:21 AM) CO2 [22-32 mEq/L] 20 mEq/L *LOW* (10/04/14 6:21 AM) AGAP [3-20] 6 (10/04/14 6:21 AM) BUN [4-20 mg/dL] 21 mg/dL *HI* (10/04/14 6:21 AM) Glucose Lvl [70-100 110 mg/dL mg/dL] *HI* (10/04/14 6:21 AM) Creatinine Lvl 0.90 mg/dL [0.64-1.27 mg/dL] (10/04/14 6:21 AM) eGFR [>60] >60 1 (10/04/14 6:21 AM) Calcium Lvl 8.7 mg/dL [8.6-10.0 mg/dL] (10/04/14 6:21 AM) Albumin Lvl [3.5-4.8 3.1 gm/dL gm/dL] *LOW* (10/04/14 6:21 AM) Magnesium Lvl 1.9 mg/dL [1.8-2.5 mg/dL] (10/04/14 6:21 AM) Phosphorus [2.4-4.7 3.8 mg/dL 2 mg/dL] (10/04/14 6:21 AM) Blood Glucose, 105 mg/dL Capillary [74-106 (10/07/14 6:26 PM) mg/dL] 1Result Comment: Multiply eGFR results by 1.21 for race. 2Result Comment: High dosages of liposomal Amphotericin B (AmBisome) therapy or other drug preparations that use a liposomal envelope to facilitate drug delivery may cause falsely elevated results for phosphorus. Immunizations Vaccine Date Refusal Reason influenza virus [...]
--- OUTSIDE RECORDS SUMMARY | 2016-06-13 08:38 | XMS REPORT ---
Author Author Ronnell Restrepo Organization [employer] Address Unknown Phone Unavailable Care Team Providers Care Leaf Conditioner Helper Name Role Phone Ronnell Restrepo CP Unavailable Allergies, Adverse Reactions, Alerts Substance Reaction Event Type N.K.D.A. Info Not Available Non Drug Allergy Problems Problem Type Condition Code Onset Dates Condition Status Problem Left sided chest pain R07.9 Active Problem Family history of ischemic heart disease and other diseases of the circulatory system Z82.49 Active Problem TIA (transient ischemic attack) G45.9 Active Assessment Family history of ischemic heart disease and other diseases of the circulatory system Z82.49 Active Assessment TIA (transient ischemic attack) G45.9 Active Assessment Left sided chest pain R07.9 Active Medications Medication Code System Code Instructions Start Date End Date Status Dosage Atorvastatin Calcium [facility] [address]-57 40 MG Orally Once a day [address] [facility] [address]-99 25 MG Orally Twice a day 1/ 2 tablet Insulin NDC 0 not defined Aspirin-Dipyridamole NDC [address] [facility] [address]-35 Orally not defined Benicar [facility] [address]-99 20 MG Orally not defined Flomax [facility] [address]-89 0.4 MG Orally Once a day 1 capsule 30 minutes after the same meal each day Nitroglycerin [facility] [address]-88 0.4 MG Sublingual not defined NiCARdipine HCl [facility] [address]-40 30 MG Orally Three times a day [address] [facility] [address]-30 1 % Ophthalmic Four times a day 1 drop into affected eye Allergy Med NDC 0 not defined Procedures Procedure Coding System Code Date Office Visit, Est Pt., Level 3 CPT-4 47423 Mar 17, 2015 ELECTROCARDIOGRAM, COMPLETE CPT-4 37107 Mar 17, 2015 Vital Signs Date/Time: Mar 17, 2015 BMI 30.99 Index Weight 241 lb 6 oz lbs Height 6 ft 2 in in Cardiac Monitoring Heart Rate 68 /min Oximetry 97 % Blood Pressure Diastolic 80 mm Hg Blood Pressure Systolic 150 mm Hg Results Name Result Date Reference Range Unit Abnormality Flag Atria ECG Summary Purpose [employer] Submission
--- OUTSIDE RECORDS SUMMARY | 2016-06-13 08:39 | XMS REPORT | Referral Summary ---
Author Author [facility] Organization [facility] Address Unknown Phone Unavailable Care Team Providers Care Envelope Folder Name Role Phone Patricia Conner Primary Care Physician [phone] Encounter VC Date(s): 10/18/14 - 10/18/14 [facility] [address] [address] Discharge Diagnosis: Elevated PSA Discharge [...] BID, # 180 caps, 3 Refill(s), Pharmacy: [facility] #[id number] Start Date: 10/18/14 Status: Ordered amoxicillin 875 mg oral tablet 875 mg 1 tabs, Oral, BID, for sinusitis, # 28 tabs, 0 Refill(s), Pharmacy: [facility] #[id number], 1 tabs Oral BID,x14 days,Instr:for sinusitis Start Date: 02/07/15 Stop Date: 02/21/15 Status: Ordered atorvastatin 40 mg oral tablet 40 mg 1 tabs, Oral, Bedtime (once a day), # 90 tabs, 3 Refill(s), Pharmacy: [facility] #[id number], 1 tabs Oral Bedtime (once a day) Start Date: 10/18/14 Status: Ordered Breeze 2 test stips Breeze 2 test stips, See Instructions, test 4 times 1 day 3 TIMES PER WEEK DX 250.00 Length of need 99 yrs QTY: 150 11 REFILLS, # 150 Each, 11 Refill(s), Pharmacy: [facility] #[id number], test 4 times 1 day 3 TIMES [...] TIDWM, # 15 mL, 11 Refill(s), Pharmacy: [facility] #[id number], 15 units SubCutaneous TIDWM Start Date: 10/18/14 Status: Ordered Lantus 100 units/mL subcutaneous solution 40 units, SubCutaneous, qAM, # 10 mL, 11 Refill(s), Pharmacy: [facility] # [id number], 40 units SubCutaneous qAM Start Date: 10/18/14 Status: Ordered Lantus 100 units/mL subcutaneous solution 35 units, SubCutaneous, Bedtime (once a day), # 10 mL, 11 Refill(s), Pharmacy: [facility] #[id number], 35 units SubCutaneous Bedtime (once a day) Start Date: 10/18/14 Status: Ordered Misc Prescription Misc Prescription, See Instructions, IntraDermal QID, # 1 boxes, 11 Refill(s), Pharmacy: [facility] #[id number], IntraDermal QID Start Date: 10/18/14 Status: Ordered Miscellaneous DME DME Item ACCU CHECK SAFETY PRO PLUS SINGLE USE LANCETS, See Instructions, # 1 Each, 1 Refill(s), Pharmacy: [facility] #[id number], ACCU CHECK SAFETY PRO PLUS SINGLE USE LANCETS, Supply Start Date: 10/29/14 Status: Ordered Miscellaneous DME DME Item ACCU-CHEK SMARTVIEW TEST STRIP. CHECK BLOOD SUGARS TEST 5 X A DAY UNTILL BS ARE UNDER CONTROL DX 250.00 DEBBI 99 ONE BOX OF 150 REFILL X 11, See Instructions, # 150 Each, 11 Refill(s), Pharmacy: [facility] #[id number], ACCU-CHEK SMARTV... Start Date: 11/11/14 Status: Ordered niCARdipine 30 mg oral capsule 30 mg 1 caps, Oral, TID, # 270 caps, 3 Refill(s), Pharmacy: [facility] # [id number], 1 caps Oral TID Start Date: 10/18/14 Status: Ordered olmesartan 20 mg oral tablet 20 mg 1 tabs, Oral, Daily, # 90 tabs, 3 Refill(s), Pharmacy: [facility] # [id number], 1 tabs Oral Daily Start Date: 10/18/14 Status: Ordered topiramate 25 mg oral tablet 50 mg 2 tabs, Oral, BID, # 360 tabs, 3 Refill(s), Pharmacy: [facility] # [id number], 2 tabs Oral BID Start Date: 10/18/14 [...] Follow Up With: Where: When: Andrews August [address]; [address] [place] [id number] [facility] (1) In 2 months 12/19/2014 Comments: [...]
--- OUTSIDE RECORDS SUMMARY | 2016-06-13 08:39 | XMS REPORT | Referral Summary ---
Author Organization Unknown Address Unknown Phone Unavailable Care Team Providers Care Customer Records Division Supervisor Name Role Phone Spencer August Primary Care Physician [phone] Encounter VC Date(s): 06/22/14 - 06/22/14 [facility], W , Family Medicine [address] [place] [id number] Discharge Diagnosis: Benign prostatic hypertrophy Discharge Diagnosis: Benign essential hypertension (disorder) Discharge Diagnosis: Hyperlipidemia Discharge Disposition: Home or Self Care Attending Physician: Andrews August DO Admitting Physician: Andrews August DO Vital Signs Most recent to 1 oldest [Reference Range]: Peripheral Pulse 96 bpm Rate [60-100 bpm] (06/22/14 1:45 PM) Blood Pressure 200/100 mmHg [90-140/60-90 mmHg] *HI* (06/22/14 1:45 PM) Problem List Condition Effective Dates Status Health Status Informant Benign essential Active hypertension (disorder)(Confirmed ) Benign prostatic Active hypertrophy(Confirme d) Ketoacidosis in Active diabetes mellitus (disorder)(Confirmed ) Hyperlipidemia(Confi Active rmed) HYPERTENSION(Confirm Resolved ed) Allergies, Adverse Reactions, Alerts Substance Reaction Severity Status clarithromycin Unknown Active smallpox vaccine Active Medications Bari 10 mg-20 mg oral tablet 1 tabs, Oral, Daily, # 30 tabs, 5 Refill(s), Pharmacy: [facility] #[id number] Start Date: 06/22/14 Stop Date: 12/19/14 Status: Ordered BC INSULIN SYR 1 ML [id number] BC INSULIN SYR 1 ML [id number], See Instructions, USE WITH INSULIN DIRECTED/FAX TO [facility] [phone], # 100 tabs, 4 Refill(s) Special Instructions: USE WITH INSULIN DIRECTED/FAX TO [facility] [phone] Start Date: 02/12/14 Status: Ordered Crestor 10 mg oral tablet 1 tabs, Oral, Bedtime (once a day), # 30 tabs, 5 Refill(s), Pharmacy: [facility] #[id number], 1 tabs Oral Bedtime (once a day) Start Date: 06/22/14 Status: Ordered Flomax 0.4 mg oral capsule 1 caps, Oral, Daily, Take 1 tablet (10 mg-40 mg) oral daily, # 30 caps, 5 Refill (s), Pharmacy: [facility] #[id number], 1 caps Oral Daily,x30 days,Instr:Take 1 tablet (10 mg-40 mg) oral daily Special Instructions: Take 1 tablet (10 mg-40 mg) oral daily Start Date: 06/22/14 Stop Date: 12/19/14 Status: Ordered HumaLOG 100 units/mL subcutaneous solution See Instructions, INJECT 36 UNITS SUB-Q THREE TIMES A DAY WITH MEALS, # 15 mL, 11 Refill(s), JÚNIOR, Pharmacy: [facility] #[id number], INJECT 36 UNITS SUB-Q THREE TIMES A DAY WITH MEALS Special Instructions: INJECT 36 UNITS SUB-Q THREE TIMES A DAY WITH MEALS Start Date: 06/22/14 Status: Ordered Insulin Syringe (DME) DME Item 31 gauge x5/1 Use as directed, See Instructions, # 1 Each, 0 Refill(s) , Supply Special Instructions: 31 gauge x5/1 Use as directed Start Date: 11/02/13 Status: Ordered Insulin Syringe (DME) DME Item 30 gauge x 5/1 Use to inject insulin as directed, See Instructions, # 1 Each, 0 Refill(s), Supply Special Instructions: 30 gauge x 5/1 Use to inject insulin as directed Start Date: 11/02/13 Status: Ordered Invokana 300 mg oral tablet 1 tabs, Oral, Daily, # 30 tabs, 5 Refill(s), Pharmacy: [facility] #[id number] , 1 tabs Oral Daily,x30 days Start Date: 06/22/14 Stop Date: 12/19/14 Status: Ordered Lantus 100 units/mL subcutaneous solution See Instructions, 50 units SubCutaneous am and, 50 units pm. Patient needs physcal appt before next refill, # 100 mL, 5 Refill(s), Pharmacy: [facility] #[id number], 50 units SubCutaneous am and, 50 units pm. Patient needs physcal appt before next... Special Instructions: 50 units SubCutaneous am and, 50 units pm. Patient needs physcal appt before next refill Start Date: 06/22/14 Status: Ordered metFORMIN 1000 mg oral tablet See Instructions, TAKE ONE TABLET BY MOUTH TWICE A DAY WITH MORNING AND EVENING MEALS, # 60 tabs, 5 Refill(s), Pharmacy: [facility] #[id number], TAKE ONE TABLET BY MOUTH TWICE A DAY WITH MORNING AND EVENING MEALS Special Instructions: TAKE ONE TABLET BY MOUTH TWICE A DAY WITH MORNING AND EVENING MEALS Start Date: 06/22/14 Status: Ordered metFORMIN 1000 mg oral tablet 1 tabs, Oral, BID, 0 Refill(s) Start Date: 11/02/13 Status: Ordered Miscellaneous DME DME Item BD insulin syringes 1/2 ml [id number] use to inject insulin as directed., See Instructions, # 1 boxes, 2 Refill(s), Pharmacy: [facility] #[id number], BD insulin syringes 1/2 ml [id number] use to inject insulin as directed., Supply Special Instructions: BD insulin syringes 1/2 ml [id number] use to inject insulin as directed. Start Date: 02/22/14 Status: Ordered traMADol 50 mg oral tablet, disintegrating 1 tabs, Oral, QID, 0 Refill(s) Start Date: 06/17/14 Status: Ordered Tylenol PM mL, Oral, Bedtime (once a day), 0 Refill(s) Start Date: 06/17/14 Status: Ordered Zetia 10 mg oral tablet 1 tabs, Oral, Daily, # 30 tabs, 5 Refill(s), Pharmacy: [facility] #[id number] , 1 tabs Oral Daily,x30 days Start Date: 06/22/14 Stop Date: 12/19/14 Status: Ordered Results Hematology Most recent to 1 oldest [Reference Range]: WBC [4.8-10.8 K/uL] 7.6 K/uL (06/22/14 2:21 PM) RBC [4.60-6.20 M/uL] 5.41 M/uL (06/22/14 2:21 PM) Hgb [14.0-18.0 16.5 gm/dL gm/dL] (06/22/14 2:21 PM) Hct [42.0-52.0 %] 47.5 % (06/22/14 2:21 PM) MCV [82.0-99.0 fL] 87.8 fL (06/22/14 2:21 PM) MCH [27.0-32.0 pg] 30.5 pg (06/22/14 2:21 PM) MCHC [32.0-36.0 34.7 gm/dL gm/dL] (06/22/14 2:21 PM) RDW [11.5-14.5 %] 12.5 % (06/22/14 2:21 PM) Platelet [150-400 306 K/uL K/uL] (06/22/14 2:21 PM) MPV [8.8-14.8 fL] 10.8 fL (06/22/14 2:21 PM) Immature 0.3 % Granulocytes (06/22/14 2:21 PM) [0.0-1.0 %] Neutrophils [51-75 74 % %] (06/22/14 2:21 PM) Lymphocytes [20-46 18 % %] *LOW* (06/22/14 2:21 PM) Monocytes [4-11 %] 7 % (06/22/14 2:21 PM) Eosinophils [0-4 %] 1 % (06/22/14 2:21 PM) Basophils [0-2 %] 1 % (06/22/14 2:21 PM) Neutro Absolute 5.65 THOUS [1.90-7.00 THOUS] (06/22/14 2:21 PM) Lymph Absolute 1.35 THOUS [0.80-3.30 THOUS] (06/22/14 2:21 PM) [place] Absolute 0.53 THOUS [0.30-1.00 THOUS] (06/22/14 2:21 PM) Eos Absolute 0.04 THOUS [0.00-0.50 THOUS] (06/22/14 2:21 PM) Baso Absolute 0.05 THOUS [0.00-0.20 THOUS] (06/22/14 2:21 PM) Chemistry Most recent to 1 oldest [Reference Range]: Sodium Lvl [135-144 139 mEq/L mEq/L] (06/22/14 2:21 PM) Potassium Lvl 4.2 mEq/L [3.5-5.2 mEq/L] (06/22/14 2: PM) Chloride [99-111 103 mEq/L mEq/L] (06/22/14: PM) CO2 [23-31 mEq/L] 24 mEq/L (06/22/14: PM) AGAP [3-20] 12 (06/22/14 2: PM) BUN [8-26 mg/dL] 11 mg/dL (06/22/14: PM) Glucose Lvl [70-99 178 mg/dL mg/dL] *HI* (06/22/14: PM) Creatinine Lvl 0.87 mg/dL [0.72-1.25 mg/dL] (06/22/14: PM) eGFR [>60 mL/min] >60 mL/min 1 (06/22/14: PM) Calcium Lvl 9.7 mg/dL [8.9-10.5 mg/dL] (06/22/14 PM) Albumin Lvl [3.4-4.8 4.0 gm/dL gm/dL] (06/22/14: PM) Total Protein 7.1 gm/dL [6.2-8.1 gm/dL] (06/22/14 PM) Globulin [1.8-4.0 3.1 gm/dL gm/dL] (06/22/14: PM) ALT [0-55 unit/L] 30 unit/L (06/22/14: PM) AST [5-34 unit/L] 22 unit/L (06/22/14: PM) Alk Phos [40-150 67 unit/L unit/L] (06/22/14 2: PM) Bili Total [0.2-1.2 0.9 mg/dL mg/dL] (06/22/14: PM) PSA (wihout Reflex 6.9 ng/mL 2 Free) [0.0-4.5 *HI* ng/mL] (06/22/14 2: PM) Chol [0-199 mg/dL] 382 mg/dL *HI* (3/17/15 2:21 PM) Trig [0-149 mg/dL] 277 mg/dL *HI* (06/22/14 2:21 PM) HDL [40-84 mg/dL] 48 mg/dL (06/22/14 2:21 PM) LDL [0-130 mg/dL] 279 mg/dL *HI* (06/22/14 2:21 PM) VLDL Cholesterol 55 mg/dL [0-28 mg/dL] *HI* (06/22/14 2:21 PM) Cardiac Risk 8.0 [0.0-5.7] *HI* (06/22/14 2:21 PM) TSH with Reflex Free 0.94 T4 [0.35-4.94] (06/22/14 2:21 PM) Hgb A1c [4.1-5.6 %] 9.6 % *HI* (06/22/14 2:21 PM) eAvg Glucose 228.8 mg/dL (06/22/14 2:21 PM) 1Result Comment: Multiply eGFR results by 1.21 for race. 2Result Comment: AUA PSA Best Practice Guidelines: Age-Adjusted PSA Values by Ethnic Group Age Range Asians - Caucasians Americans 40-49 0-2.0 0-2.0 0-2.5 50-59 0-3.0 0-4.0 0-3.5 60-69 0-4.0 0-4.5 0-4.5 70-79 0-5.0 0-5.5 0-6.5 Immunizations Vaccine Date Refusal Reason influenza virus vaccine, live 05/03/13 influenza virus vaccine, live 02/23/11 influenza virus vaccine, live 05/24/10 pneumococcal 23-polyvalent vaccine 05/24/10 tetanus-diphth toxoids (Td) adult/adol 11/27/96 Procedures No data available for this section Social History Social History Type Response Smoking Status Never smoker Assessment and Plan Extracted from: Title: Ambulatory Patient Education Author: Andrews August DO Date: Follow Up With: Where: When: Andrews August [address]; [place] [address] Business (1) In 3 months 09/22/2014 Comments: For follow-up of:labs pt to restart his medications, has been off them for months pt to work on diet and exercise Extracted from: Title: Hypertension * Author: Andrews August DO Date: 06/22/14 Impression and Plan Diagnosis Hyperlipidemia (ICD9 272.4, Discharge, Medical). Benign prostatic hypertrophy (ICD9 600.00, Discharge, Medical). Benign essential hypertension (disorder) (ICD9 401.1, Discharge, Medical). Course: Worsening. Plan: Monitor blood pressure, Weight monitoring. Diet: Low fat. Patient Instructions: Andrews August In 3 months 09/22/2014 For follow-up of:labs pt to restart his medications, has been off them for months pt to work on diet and exercise . Orders Orders (Selected) Outpatient Orders Completed CBC w/ Differential: Comprehensive Metabolic Panel: Estimated Average Glucose: Fasting Lipid Profile: Hemoglobin A1c: PSA: TSH with Reflex Free T4: eGFR: Prescriptions Prescribed Bari 10 mg-20 mg oral tablet: 1 tabs, Oral, Daily, 30 tabs Crestor 10 mg oral tablet: 1 tabs, Oral, Bedtime (once a day), 30 tabs Flomax 0.4 mg oral capsule: 1 caps, Oral, Daily, Take 1 tablet (10 mg-40 mg) oral daily, 30 caps HumaLOG 100 units/mL subcutaneous solution: See Instructions, INJECT 36 UNITS SUB-Q THREE TIMES A DAY WITH MEALS, 15 mL Invokana 300 mg oral tablet: 1 tabs, Oral, Daily, 30 tabs Lantus 100 units/mL subcutaneous solution: See Instructions, 50 units SubCutaneous am and, 50 units pm. Patient needs physcal appt before next refill , 100 mL Zetia 10 mg oral tablet: 1 tabs, Oral, Daily, 30 tabs metFORMIN 1000 mg oral tablet: See Instructions, TAKE ONE TABLET BY MOUTH TWICE A DAY WITH MORNING AND EVENING MEALS, 60 tabs.
--- OUTSIDE RECORDS SUMMARY | 2016-06-13 08:39 | XMS REPORT | Referral Summary ---
Author Author [facility] Organization [facility] Address Unknown Phone Unavailable Care Team Providers Care Impregnator Helper Name Role Phone Patricia Conner Primary Care Physician [phone] Encounter VC Date(s): 03/07/15 - 03/08/15 [facility] [address] [place] [address] [phone] Discharge Diagnosis: Acute chest pain Discharge Disposition: 01-Home or Self Care Attending Physician: Thomas Hoffman MD Admitting Physician: Hayley Hogue DO Vital Signs Most recent to 1 oldest [Reference Range]: Temperature Oral 36.5 degC [35.8-37.3 degC] (03/08/15 11:58 AM) Peripheral Pulse 62 bpm Rate [60-100 bpm] (03/08/15 11:58 AM) Heart Rate Monitored 75 bpm [60-100 bpm] (03/07/15 1:51 PM) Respiratory Rate 20 br/min [14-20 br/min] (03/08/15 11:58 AM) Blood Pressure 157/79 mmHg [90-140/60-90 mmHg] *HI* (03/08/15 11:58 AM) Mean Arterial 95 mmHg Pressure, Cuff (03/07/15 1:35 PM) SpO2 94 % (03/08/15 1:24 PM) Problem List Condition Effective Dates Status [...] to 1 oldest [Reference Range]: WBC [4.8-10.8 7.4 10*3/uL 10*3/uL] (03/08/15 7:28 AM) RBC [4.60-6.20] 4.51 *LOW* (03/08/15 7:28 AM) Hgb [14.0-18.0 14.3 gm/dL gm/dL] (03/08/15 7:28 AM) Hct [42.0-52.0 %] 42.6 % (03/08/15 7:28 AM) MCV [82.0-99.0 fL] 94.5 fL (03/08/15 7:28 AM) MCH [27.0-32.0 pg] 31.7 pg (03/08/15 7:28 AM) MCHC [32.0-36.0 33.6 gm/dL gm/dL] (03/08/15 7:28 AM) RDW [11.5-14.5 %] 13.0 % (03/08/15 7:28 AM) Platelet [150-400 242 10*3/uL 10*3/uL] (03/08/15 7:28 AM) MPV [9.4-12.3 fL] 10.2 fL (03/08/15 7:28 AM) Immature 0.1 % Granulocytes (03/08/15 7:28 AM) [0.0-1.0 %] Neutrophils [51-75 58 % %] (03/08/15 7:28 AM) Lymphocytes [20-46 27 % %] (03/08/15 7:28 AM) Monocytes [4-11 %] 11 % (03/08/15 7:28 AM) Eosinophils [0-4 %] 4 % (03/08/15 7:28 AM) Basophils [0-2 %] 1 % (03/08/15 7:28 AM) Neutro Absolute 4.32 10*3 [1.90-7.00 10*3] (03/08/15 7:28 AM) Lymph Absolute 1.98 10*3 [0.80-3.30 10*3] (03/08/15 7:28 AM) [place] Absolute 0.80 10*3 [0.30-1.00 10*3] (03/08/15 7:28 AM) Eos Absolute 0.27 10*3 [0.00-0.50 10*3] (03/08/15 7:28 AM) Baso Absolute 0.05 10*3 [0.00-0.20 10*3] (03/08/15 7:28 AM) Nucleated RBC 0.0 /100 WBC Automated [0 /100 (03/08/15 7:28 AM) WBC] Chemistry Most recent to 1 oldest [Reference Range]: Sodium Lvl [136-144 141 mEq/L mEq/L] (03/08/15 7:28 AM) Potassium Lvl 3.6 mEq/L [3.6-5.1 mEq/L] (03/08/15 7:28 AM) Chloride [99-109 109 mEq/L mEq/L] (03/08/15 7:28 AM) CO2 [22-32 mEq/L] 25 mEq/L (03/08/15 7:28 AM) AGAP [3-20] 7 (03/08/15 7:28 AM) BUN [4-20 mg/dL] 14 mg/dL (03/08/15 7:28 AM) Glucose Lvl [70-100 103 mg/dL mg/dL] *HI* (03/08/15 7:28 AM) Creatinine Lvl 0.87 mg/dL [0.64-1.27 mg/dL] (03/08/15 7:28 AM) eGFR [>60] >60 1 (03/08/15 7:28 AM) Calcium Lvl 8.8 mg/dL [8.6-10.0 mg/dL] (03/08/15 7:28 AM) Albumin Lvl [3.5-4.8 3.9 gm/dL gm/dL] (03/07/15 11:38 AM) Total Protein 7.1 gm/dL [6.1-7.9 gm/dL] (03/07/15 11:38 AM) Globulin [1.9-4.3 3.2 gm/dL gm/dL] (03/07/15 11:38 AM) ALT [17-63 U/L] 47 U/L (03/07/15 11:38 AM) AST [15-41 U/L] 25 U/L (03/07/15 11:38 AM) Alk Phos [26-104 51 U/L U/L] (03/07/15 11:38 AM) Bili Total [0.2-1.2 0.9 mg/dL 2 mg/dL] (03/07/15 11:38 AM) Magnesium Lvl 1.7 mg/dL [1.8-2.5 mg/dL] *LOW* (03/08/15 7:28 AM) Troponin [<0.06 <0.05 ng/mL ng/mL] (03/07/15 7:01 PM) Blood Glucose, 134 mg/dL Capillary [70-100 *HI* mg/dL] (03/08/15 11:46 AM) Chol [0-200 mg/dL] 121 mg/dL (03/08/15 7:28 AM) Trig [0-150 mg/dL] 118 mg/dL (03/08/15 7:28 AM) HDL [>40 mg/dL] 50 mg/dL (03/08/15 7:28 AM) LDL [0-100 mg/dL] 47 mg/dL (03/08/15 7:28 AM) VLDL Cholesterol 24 mg/dL [0-30 mg/dL] (03/08/15 7:28 AM) Cardiac Risk 2.4 [0.0-5.7] (03/08/15 7:28 AM) Hgb A1c [4.1-5.6 %] 6.6 % *HI* (03/07/15 2:50 PM) eAvg Glucose 142.7 mg/dL (03/07/15 2:50 PM) 1Result Comment: Multiply eGFR results by 1.21 for race. 2Result Comment: Naproxen, specifically the metabolite O-desmethylnaproxen, may cause spurious elevation in Total Bilirubin levels. Immunizations Vaccine Date Refusal Reason influenza virus [...]
[2016-06-13] MEDS ORDERED: MIDAZOLAM 2mg/2ml INJECTION ONE ×2 (09:16→09:28)
[2016-06-13] MEDS ORDERED: FENTANYL 100mcg/2ml INJECTION IV PRN (10:15)
[2016-06-13] MEDS ORDERED: MIDAZOLAM 5mg/5ml INJECTION IV PRN (10:15)
--- NOTE | 2016-06-13 16:38 | OPNOTEF ---
DATE OF OPERATION 06/13/2016 INDICATION Colorectal cancer screening OPERATION Colonoscopy SURGEON Ceasar Conner D.O. ASA CLASSIFICATION II Consent signed and on the chart. Routine monitoring with ECG, continuous oximetry and noninvasive blood pressure was performed throughout the procedure and found to be within normal limits. IV sedation was performed with a total of 9 mg of Versed and 90 mcg of Fentanyl. Prior to the procedure, the patient was brought to the endoscopy lab where a brief review of his medical history and physical exam was performed. The procedure was described to him and he was agreeable to continue. All questions were answered. DESCRIPTION OF OPERATION He was given IV sedation and placed in the left lateral decubitus position. A digital rectal exam revealed an enlarged prostate, no masses. The colonoscope was introduced through the anal verge and advanced to the cecum. Upon reaching the cecum, careful inspection of the mucosa was performed. Multiple washings were required due to a poor bowel prep. At the level of the proximal ascending colon, there was a distinct polyp which was biopsied and then removed with snare. Then also more distal in the ascending colon, another polyp with biopsy also removed with snare and then also in the transverse colon a polyp biopsied and removed. The remainder of his colon was unremarkable. He tolerated the procedure well. The only complication was poor bowel prep. IMPRESSION 1. Polyp at the transverse colon, biopsied and removed. 2. Polyp at the ascending colon, biopsied and removed. 3. Polyp at the proximal ascending colon, biopsied and removed. 4. Poor prep. RECOMMENDATIONS 1. Review the path report when available. 2. Repeat in 12 months. OTILIA
== END 2016-06-13 10:47 | disposition home or self-care (01) ==
LOC: NSC 08:10
PROVIDERS: ATTEND Internal Medicine
DX: Z12.11 Encounter for screening for malignant neoplasm of colon (principal); D12.2 Benign neoplasm of ascending colon; G47.33 Obstructive sleep apnea (adult) (pediatric); I10 Essential (primary) hypertension; E78.5 Hyperlipidemia, unspecified; E11.8 Type 2 diabetes mellitus with unspecified complications; E11.311 Type 2 diabetes mellitus with unspecified diabetic retinopathy with macular edema; E11.36 Type 2 diabetes mellitus with diabetic cataract; J30.9 Allergic rhinitis, unspecified; Z87.891 Personal history of nicotine dependence; E66.9 Obesity, unspecified; Z68.32 Body mass index [BMI] 32.0-32.9, adult; Z79.4 Long term (current) use of insulin; Z79.899 Other long term (current) drug therapy; Z86.73 Personal history of transient ischemic attack (TIA), and cerebral infarction without residual deficits
CPT/HCPCS: 45385; 82948; 88305; J2250; J3010; J7120